=== PATIENT | female | born 2000 | race Caucasian/White ===

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

== ENCOUNTER → 2023-03-29 12:53 | Outpatient (BNVA) | payer MEDICAID, SELFPAY | PROVIDERS: PCP Family Medicine; Visit Provider Nurse Practitioner Family | DX: J02.9 Acute pharyngitis, unspecified (principal) | CPT/HCPCS: 87880 ==

== ENCOUNTER → 2023-06-15 13:59 | Outpatient (BNVA) | payer MEDICAID, SELFPAY | PROVIDERS: PCP Family Medicine; Visit Provider Nurse Practitioner | DX: R51.9 Headache, unspecified (principal); Z11.52 Encounter for screening for COVID-19 | CPT/HCPCS: 87426 ==